=== PATIENT | female | born 1960 | race Caucasian/White ===

== ENCOUNTER 2024-10-30 10:51 | Emergency (ER) | payer BC, SELFPAY ==
[2024-10-30 10:52] VITALS: BP 146/95; PULSE 90; RESP 16; TEMP 36.1; O2SAT 99; BMI 24.7
--- NOTE | 2024-10-30 11:25 | EKG12_ITS ---
Test Reason : RIGHT FLANK PAIN Blood Pressure : */* mmHG Vent. Rate : 81 BPM Atrial Rate : 81 BPM P-R Int : 152 ms QRS Dur : 82 ms QT Int : 396 ms P-R-T Axes : 65 57 56 degrees QTcB Int : 460 ms Normal sinus rhythm Normal ECG Confirmed by XUAN TRONCOSO, SARAH ([id number]), story editor RODRIGUEZ VELÁZQUEZ ([id number]) on 11/02/2024 6:42:32 AM Referred By: Confirmed By: SARAH GOVEA MD
--- NOTE | 2024-10-30 11:26 | EX.ED.DYSGE1 ---
HPI <HARRY Yepez - Last Filed: 10/30/24 13:13> History of Present Illness Chief Complaint: Flank Pain Narrative Narrative: Patient is a 64-year-old female with history of COPD who still smokes 10 cigarettes/day, hypertension hyperlipidemia, presenting to the emergency department with right rib pain that radiates from the front to the back has been ongoing for the last 1.5 months. Patient dates she has been seen by her PCP as well [facility] Patient states that the pain is still persistent, it feels like an internal pain. She is here for evaluations. Patient she does have history of pneumonia, she has been treated for this greater than 1.5 months ago. She denies any recent travel, denies any left-sided chest pain, patient states that the pain increases in intensity from sharp to stabbing. PFSH <HARRY Yepez - Last Filed: 10/30/24 13:13> [facility] Home Medications ?Medication ?Instructions ?Recorded ?Last Taken ?Type naproxen 500 mg tablet (Naprosyn) 500 mg PO BID PRN pain #20 tabs 10/30/24 Unknown Rx Allergy/AdvReac Type Severity Reaction Status Date / Time No Known Allergies Allergy Verified 10/30/24 10:51 Social History Smoking Status: Never smoker ROS <HARRY Yepez - Last Filed: 10/30/24 13:13> ROS ED ROS Narrative Constitutional: Negative for fever, chills, weight loss, weakness Eyes: Negative for vision loss, vision change, double vision ENT: Negative for any sore throat, ear pain, congestion Cardiovascular: Negative for any chest pain, tightness, palpitations. Positive right sided chest/rib pain Respiratory: Negative for any cough, sputum production, hemoptysis, dyspnea, dyspnea on exertion, orthopnea Gastrointestinal: Negative for any abdominal pain, nausea, vomiting, diarrhea, constipation, blood in stool, blood in vomit : Negative for any urinary frequency, dysuria, retention, blood in urine Muscle skeletal: Negative for any neck pain, back pain Neurological: Negative for any headache, syncope, dizziness Skin: Negative for any rashes, itching, abrasions, lacerations Psychiatric: Negative for any depression, anxiety, stress, suicidal ideation, homicidal ideation Hematologic: Negative for any excessive bruising, easy bleeding EXAM <HARRY Yepez - Last Filed: 10/30/24 13:13> Physical Exam Narrative Exam Narrative: Vital signs reviewed. HEET: Head normocephalic atraumatic, TMs clear bilaterally. Posterior pharynx is clear, moist mucous membranes. Nares clear bilaterally. Neck: Supple with no lymphadenopathy or tenderness. No signs of meningismus. Cardiac: Regular rate and rhythm no murmurs gallops or rubs, equal peripheral pulses bilaterally. Respiratory: Lungs clear to auscultation bilaterally. No chest tenderness. Palpation along the posterior, lateral chest wall was negative. No crepitus. Abdomen: Soft, nontender, nondistended. No abdominal bruit or pulsatile masses. No hepatosplenomegaly Extremities: No peripheral edema, no signs of gross trauma or deformity. Active full range of motion of all extremities. Neuro: Cranial nerves II through XII intact, no focal neurological deficits. Skin: Clean dry and intact with no rash, purpura, petechiae, vesicles or pustules. Backs/flank: No CVA tenderness, no midline spinal tenderness, no deformity. Psych: Normal mood and affect. No SI, HI or acute psychosis. Const Vital Signs: 10/30/24 10:52 Temperature 96.9 F L Temperature Source Temporal Pulse Rate 90 Respiratory Rate 16 Blood Pressure 146/95 H Blood Pressure Mean 112 Pulse Ox 99 Oxygen Delivery Method Room Air <Dr. Mehul Peterson, - Last Filed: 10/30/24 13:48> Physical Exam Const Vital Signs: 10/30/24 10:52 Temperature 96.9 F L Temperature Source Temporal Pulse Rate 90 Respiratory Rate 16 Blood Pressure 146/95 H Blood Pressure Mean 112 Pulse Ox 99 Oxygen Delivery Method Room Air [facility] <HARRY Yepez - Last Filed: 10/30/24 13:13> [facility] Lab Data Labs: Laboratory Results - last 24 hr 10/30/24 11:42 WBC 7.3 RBC 5.05 Hgb 14.8 Hct 42.5 MCV 84.2 MCH 29.3 MCHC 34.8 RDW Std Deviation 38.7 RDW Coeff of Stas 12.8 Plt Count 284 MPV 9.5 Immature Gran % (Auto) 0.400 Neut % (Auto) 71.7 H Lymph % (Auto) 20.4 Toole % (Auto) 6.2 Eos % (Auto) 1.0 Baso % (Auto) 0.3 Absolute Neuts (auto) 5.2 Absolute Lymphs (auto) 1.49 Nucleated RBC % 0 D-Dimer Quant (PE/DVT) 0.33 Sodium 137 Potassium 3.1 L Chloride 102 Carbon Dioxide 27.0 Anion Gap 8 BUN 17 Creatinine 0.62 Estim Creat Clear Calc 62.07 Est GFR (MDRD) Af Amer 124 Est GFR (MDRD) Non-Af 103 BUN/Creatinine Ratio 27.6 H Glucose 96 Calcium 10.0 Total Bilirubin 0.50 AST 16 ALT 22 Alkaline Phosphatase 95 Troponin I High Sens 6 Total Protein 6.7 Albumin 3.4 Globulin 3.3 Albumin/Globulin Ratio 1.0 Lipase 21 Radiography Diagnostic Testing: Clinical Impression(s) from Imaging Studies Chest X-Ray 10/30/24 11:45 IMPRESSION: Degenerative changes, as described above. No demonstrated acute cardiopulmonary process. Electronically Signed: Clifton Doyle MD at 12:23 EST , EKG EKG shows a normal sinus rhythm, : Attestation: I personally reviewed and interpreted this EKG as follows: Interpretation: Sinus Rhythm Comments: EKG shows normal sinus rhythm, rate of 81 bpm, MA interval 152 ms, QRS duration 82 ms, no acute ST elevation, no acute infarct noted. Treatment and Re-Evaluation :: Differential diagnosis includes however is not limited to: Pulmonary embolus, ACS, ND, pleurisy, costochondritis, community-acquired pneumonia, rib strain, upper abdominal pathology such as cholecystitis, hepatic steatosis Patient appears generally well, vital signs are stable, patient is nontoxic-appearing. Presenting to the emergency department for complaints of right-sided chest wall pain, right-sided rib pain has been ongoing for 1.5 months. Secondary to patient's age, comorbidities, patient will receive a cardiac workup including a two-view chest x-ray. Troponin as well as a dimer will be ordered. Patient given IV Toradol for discomfort. All radiologic examinations were read, reviewed by the emergency department attending. From these reads, a plan of care will be put in place. Patient's chest x-ray two-view showed degenerative changes, no demonstrated acute cardiopulmonary process. Patient's laboratory values showed a normal CBC, patient's D-dimer was negative. Chemistries were unremarkable. Troponin was negative. At this time, there is no suspicion for any ACS, ND, PE. I believe this is more muscle skeletal. Patient be given anti-inflammatories, instructed to perform generalized stretching, ice and heat. Patient is agreeable with this plan, all questions answered, stable for discharge. <Dr. Mehul Peterson, DO - Last Filed: 10/30/24 13:48> [facility] Narrative Medical decision making narrative: I have personally performed a face to face assessment of the patient and have reviewed the KISHORE Note. I performed a substantive portion of the visit including all aspects of the following. My ahumada findings include: History: Patient presents with right-sided chest pain that has been getting worse over the past 2 months. Patient describes it as sharp. Patient states it is worse with ambulation. Patient states it starts in her back and radiates around to the right anterior chest. Patient denies any fevers or chills. Patient does admit to a cough and some shortness of breath but states she has a history of COPD. Patient denies any nausea or vomiting. Patient denies any diaphoresis. Exam: Vital signs are stable. Patient is afebrile. Patient is in no acute distress. Oral mucosa is pink and moist. Neck is supple. Trachea is midline. There is no JVD. Heart was regular rate and rhythm. Lungs are clear and equal bilaterally. There is good respiratory effort noted. Abdomen is soft. Bowel sounds are normal. There is no tenderness. Cranial nerves II through XII are intact. There are no focal motor or sensory deficits noted. There is mild tenderness over the right chest wall and costal margin. Medical Decision Making: Differential diagnosis includes pneumonia, pneumothorax, pleurisy, pulmonary embolism, musculoskeletal pain, cardiac dysrhythmia, cardiac ischemia, pancreatitis, cholecystitis, cholelithiasis, and electrolyte abnormality. EKG will be obtained to assess for cardiac dysrhythmia and cardiac ischemia. CBC will be obtained to assess for leukocytosis and anemia. Comprehensive metabolic profile will be obtained to assess for hepatic function, renal function, and electrolyte abnormality. Lipase will be obtained to assess for pancreatitis. High-sensitivity troponin will be obtained to assess for cardiac ischemia. D-dimer will be obtained to assess for pulmonary embolism. EKG was obtained. On my independent interpretation, there is a normal sinus rhythm with a rate of 81. MA interval, QRS interval, and QTc intervals are within normal limits. Allen is normal. There are no acute ST or T wave changes noted. PA and lateral chest x-ray was obtained. There are 2 views. On my independent interpretation, lung rodriguez are clear. There is normal cardiac silhouette. Bony thorax is normal. There is no acute process noted. Radiologist also interpreted the x-ray and agrees. CBC was reviewed and was within normal limits. D-dimer was reviewed and was normal at 0.33. Comprehensive metabolic profile was reviewed. Potassium was slightly low at 3.1. The remainder is within normal limits. High-sensitivity troponin was reviewed and was normal at 6. Lipase was reviewed and was normal at 21. Patient was given injection of Toradol here. Patient is feeling better on reevaluation. Patient was advised of her findings. Patient was instructed to follow-up with her primary care physician in 5 to 7 days. Patient understood and was agreeable with the plan. All questions were answered. Lab Data Labs: Laboratory Results - last 24 hr 10/30/24 11:42 WBC 7.3 RBC 5.05 Hgb 14.8 Hct 42.5 MCV 84.2 MCH 29.3 MCHC 34.8 RDW Std Deviation 38.7 RDW Coeff of Stas 12.8 Plt Count 284 MPV 9.5 Immature Gran % (Auto) 0.400 Neut % (Auto) 71.7 H Lymph % (Auto) 20.4 Toole % (Auto) 6.2 Eos % (Auto) 1.0 Baso % (Auto) 0.3 Absolute Neuts (auto) 5.2 Absolute Lymphs (auto) 1.49 Nucleated RBC % 0 D-Dimer Quant (PE/DVT) 0.33 Sodium 137 Potassium 3.1 L Chloride 102 Carbon Dioxide 27.0 Anion Gap 8 BUN 17 Creatinine 0.62 Estim Creat Clear Calc 62.07 Est GFR (MDRD) Af Amer 124 Est GFR (MDRD) Non-Af 103 BUN/Creatinine Ratio 27.6 H Glucose 96 Calcium 10.0 Total Bilirubin 0.50 AST 16 ALT 22 Alkaline Phosphatase 95 Troponin I High Sens 6 Total Protein 6.7 Albumin 3.4 Globulin 3.3 Albumin/Globulin Ratio 1.0 Lipase 21 Radiography Diagnostic Testing: Clinical Impression(s) from Imaging Studies Chest X-Ray 10/30/24 11:45 IMPRESSION: Degenerative changes, as described above. No demonstrated acute cardiopulmonary process. Electronically Signed: Clifton Doyle MD at 12:23 EST , Discharge Plan Triage Chief Complaint: Flank Pain ED Midlevel Provider: Wero Argueta ED Provider: Mehul Peterson Dx/Rx/DC Orders Primary Care Provider: Nela Weaver Referrals: Nela Weaver CNM [Primary Care Provider] - Print Language: Prydeinig
[2024-10-30] MEDS: Ketorolac 15 MG/ML Vial IV (11:38)
--- NOTE | 2024-10-30 11:45 | RAD_ITS ---
STUDY: X-RAY CHEST REASON FOR EXAM: Female, 64 years old. Cough TECHNIQUE: PA and lateral views of the chest. COMPARISON: None. FINDINGS: There is mild left lower lung scarring or atelectasis. There is no demonstrated pleural abnormality. Normal size heart. Normal mediastinum and christiano. Normal visualized pulmonary arteries. There is atherosclerotic calcification of the aortic arch. Normal visualized thoracic spine. Normal visualized ribs, clavicles, and shoulders. There is no demonstrated abnormality of the visualized soft tissue structures of the upper abdomen. RAD/Chest PA and Lateral IMPRESSION: Degenerative changes, as described above. No demonstrated acute cardiopulmonary process. Electronically Signed: Clifton Doyle MD at 12:23 [facility] ,
[2024-10-30 11:58] LABS: Absolute Lymphocyte Count 1.49 X10^3/uL (0.83-4.51); Absolute Neutrophil Count 5.2 X10^3/uL (2.0-7.7); Basophil# 0.02 X10^3/uL; Basophil% 0.3 % (0-1); Eosinophil# 0.07 X10^3/uL; Hematocrit 42.5 % (37-47); Hemoglobin 14.8 g/dL (12.0-15.0); Lymphocyte # 1.49 X10^3/ul (0.83-4.51); Lymphocyte % 20.4 % (19-41); Mean Corp Hgb Conc 34.8 g/dL (32-36); Mean Corpuscular Hgb 29.3 pg (27.0-32.0); Mean Corpuscular Volume 84.2 fL (81-99); Mean Platelet Vol. 9.5 fl (6.2-12.0); Monocyte# 0.45 X10^3/uL; Monocyte% 6.2 % (0-10); NRBC Flagged by Analyzer 0 % (0-5); Neutrophil # 5.24 X10^3/uL (2.7-7.7); Neutrophil % 71.7 % (47-70); Platelet Count 284 K/mm3 (150-450); RBC Distribution Width CV 12.8 % (11.6-14.6); RBC Distribution Width SD 38.7 fl (35.1-43.9); Red Blood Count 5.05 M/mm3 (4.2-5.4); White Blood Count 7.3 K/mm3 (4.4-11.0)
[2024-10-30 12:07] LABS: D-Dimer Quantitative (DVT/PE) 0.33 FEU/ug/m (0.27-0.49)
[2024-10-30 12:14] LABS: AST(SGOT) 16 U/L (15-37); Alanine Aminotransfer ALT/SGPT 22 U/L (13-56); Albumin, Serum 3.4 g/dL (3.2-5.0); Alkaline Phosphatase 95 U/L (45-117); Anion Gap 8 (5-15); BUN 17 mg/dL (7-18); BUN/Creat Ratio 27.6 RATIO (10-20); Chloride 102 mmol/L (98-107); Creatinine, Serum 0.62 mg/dL (0.55-1.02); EST Glomerular Filtration Rate 103 mL/min (>60); Est Glom Filt Rate - Afr Amer 124 mL/min (>60); Estimated Creatinine Clearance 62.07 ml/min; Globulin 3.3 g/dL (2.2-4.2); Glucose 96 mg/dL (74-106); Lipase 21 U/L (13-75); Potassium 3.1 mmol/L (3.5-5.1); Protein, Total 6.7 g/dL (6.4-8.2); Sodium Level 137 mmol/L (136-145); Troponin-I HS 6 pg/mL (3.0-54.0)
[2024-10-30 12:51] VITALS: BP 129/86; PULSE 71; RESP 16; O2SAT 98
[2024-10-30 13:25] VITALS: BP 129/86; PULSE 71; RESP 16; TEMP 36.6; O2SAT 98
== END 2024-10-30 13:25 | disposition home or self-care (01) ==
PROVIDERS: Nurse Practitioner; Emergency Provider Emergency Medicine; PCP Registered Nurse; Visit Provider Emergency Medicine
DX: R10.9 Unspecified abdominal pain (principal); J44.9 Chronic obstructive pulmonary disease, unspecified; I10 Essential (primary) hypertension; E78.5 Hyperlipidemia, unspecified; F17.210 Nicotine dependence, cigarettes, uncomplicated; R07.89 Other chest pain; R06.02 Shortness of breath
CPT/HCPCS: 71046; 80053; 83690; 84484; 85025; 85379; 93005; 99283; A4216